=== PATIENT | female | born 1940 | race Caucasian/White ===

== ENCOUNTER 2022-09-23 08:35 | Observation (INO) ==
--- NOTE | 2022-09-13 11:14 | Anesthesiology Consultation ---
Date of Service September 13, 2022 Assessment & Plan (1) Encounter for pre-operative examination: COVID screening: Per assessment on 09/13: No known COVID-19 positive contacts or current COVID-19 related symptoms. Travel screen negative. Patient vaccinated. At surgeon discretion if preop Covid testing being done. Chart Review Chart Review: Acceptable Risk for Surgery and Patient NOT seen in Pre Admission Testing History Surgery Operation Date: 09/23/22 12:05 Proposed Procedures p Right Breast Mastectomy with Right Axillary [place] Lymph Node Biopsy - Paco Tucker MD Height/Weight Height: 5 ft Weight: 53.977 kg Allergies Allergy/AdvReac Type Severity Reaction Status Date / Time codeine Allergy Severe Hives Verified 09/13/22 11:27 Sulfa (Sulfonamide Allergy Unknown Unknown Verified 09/13/22 11:27 Antibiotics) morphine AdvReac Intermediate Diarrhea Verified 09/13/22 11:27 Medications Home Medications Medication Instructions Recorded Confirmed Last Taken biotin 5 mg tablet 5 mg PO QAM 09/13/22 09/13/22 Unknown jpjpzfe-uhifchhup-rces 333 mg-133 1 tab PO QAM 09/13/22 09/13/22 Unknown mg-5 mg tablet cholecalciferol (vitamin D3) 50 50 mcg PO QAM 09/13/22 09/13/22 Unknown mcg (2,000 unit) capsule (Vitamin D3) cyclobenzaprine 10 mg tablet 10 mg PO TID PRN Muscle Pain 09/13/22 09/13/22 Unknown gabapentin 100 mg capsule 100 mg PO HS PRN restless leg 09/13/22 09/13/22 Unknown syndrome ibuprofen 200 mg tablet 200 mg PO DAILY PRN Pain 09/13/22 09/13/22 Unknown loratadine 10 mg tablet 10 mg PO DAILY PRN allergies 09/13/22 09/13/22 Unknown multivit with 1 tab PO QAM 09/13/22 09/13/22 Unknown sjvtayjh-dokl-VG-lutein 8 mg iron-400 mcg-300 mcg tablet (Centrum Silver Women) vitamin B complex 1 tab PO QAM 09/13/22 09/13/22 Unknown Past Medical History Medical History Breast cancer, right Estrogen/progesterone receptor positive Cervical pain (neck) Flexeril PRN History of IBS Osteoarthritis Restless leg syndrome Past Family History Family History Other No family history of adverse response to anesthesia Past Surgical History Surgical History H/O thumb surgery removal of a thumb bone History of bilateral tubal ligation History of breast biopsy History of cataract surgery bilateral History of colonoscopy History of open reduction and internal fixation (ORIF) procedure left leg (age 15) with hardware Social History Smoking Status: Former smoker tobacco type: cigarettes Smoking End Date: Hx Alcohol Use: Yes Alcohol type: beer alcohol intake frequency: 0-2 drinks per day Hx Substance Use: No substance use type: does not use Testing Laboratory Results 07/26/22 WBC 7.41 H/H 13.3/41.9 PLATELETS 241 SODIUM 144 POTASSIUM 4.4 CHLORIDE 104 CO2 29 BUN 20 CREATININE 0.9 GLUCOSE 83 Electrocardiogram Date: 09/04/22 Findings: + NSR @ (78)
[~2022-09-23 08:35] MED LIST: LR 15ML/HR IV SCH; ceFAZolin 2000MG 2,000 MG/15 ML SYR IV SCH
[2022-09-23] MEDS ORDERED: LABETALOL HCL IV 5 MG/ML 20ML IV PRN (09:52)
[2022-09-23] MEDS ORDERED: MEPERIDINE HCL 25 MG/ML CARP/VIAL IV PRN (09:52)
[2022-09-23] MEDS ORDERED: ePHEDrine sulfate 50 MG/ML AMP IV PRN (09:52)
[2022-09-23] MEDS ORDERED: ATROPINE SULFATE 0.1 MG/ML 10ML SYR IV PRN (09:52)
[2022-09-23] MEDS ORDERED: PHENYLEPHRINE 100MCG/ML 5ML SYR IV PRN (09:52)
[2022-09-23] MEDS ORDERED: ONDANSETRON INJ 2 MG/ML 2 ML VIAL IV PRN ×2 (09:52→14:34)
--- NOTE | 2022-09-23 09:53 | History & Physical Bridge Note ---
Date of Service September 23, 2022 History & Physical Bridge Note I have examined the patient, reviewed the History & Physical and in the interval since the performance of the History & Physical I have noted the following changes of clinical significance: no changes noted
--- NOTE | 2022-09-23 09:57 | History & Physical Report ---
Date of Service September 23, 2022 Assessment & Plan (1) Breast cancer, right: Plan 82-year-old woman with right-sided breast cancer, infiltrating ductal carcinoma. I had long discussion with her concerning options. We will proceed with right breast mastectomy with sentinel lymph node biopsy at the hospital at the earliest convenience. All her questions were answered, and she is agreeable to proceed. Consent has been obtained. History of Present Illness Primary Care Provider: Davion Mead MD 82-year-old woman with right-sided breast cancer. Allergies Allergy/AdvReac Type Severity Reaction Status Date / Time codeine Allergy Severe Hives Verified 09/23/22 09:31 Sulfa (Sulfonamide Allergy Unknown Unknown Verified 09/23/22 09:31 Antibiotics) morphine AdvReac Intermediate Diarrhea Verified 09/23/22 09:31 Home Medications Medication Instructions Recorded Confirmed Type biotin 5 mg tablet 5 mg PO QAM 09/13/22 09/23/22 History tjupivj-iumkawmhi-pvjn 333 mg-133 1 tab PO DAILY 09/13/22 09/23/22 History mg-5 mg tablet cholecalciferol (vitamin D3) 50 50 mcg PO QAM 09/13/22 09/23/22 History mcg (2,000 unit) capsule (Vitamin D3) cyclobenzaprine 10 mg tablet 10 mg PO TID PRN Muscle Pain 09/13/22 09/23/22 His tory gabapentin 100 mg capsule 100 mg PO HS PRN restless leg 09/13/22 09/23/22 History syndrome ibuprofen 200 mg tablet 200 mg PO DAILY PRN Pain 09/13/22 09/23/22 History loratadine 10 mg tablet (Claritin) 10 mg PO DAILY PRN allergies 09/13/22 09/23/22 History multivit with 1 tab PO QAM 09/13/22 09/23/22 History ktangzqf-vuyb-GS-lutein 8 mg iron-400 mcg-300 mcg tablet (Centrum Silver Women) vitamin B complex 1 tab PO QAM 09/13/22 09/23/22 History Past Med/Surg History Medical History (Updated 09/23/22 @ 09:57 by Paco Tucker MD) Breast cancer, right Estrogen/progesterone receptor positive Cervical pain (neck) Flexeril PRN History of IBS Osteoarthritis Restless leg syndrome Surgical History H/O thumb surgery removal of a thumb bone History of bilateral tubal ligation History of breast biopsy History of cataract surgery bilateral History of colonoscopy History of open reduction and internal fixation (ORIF) procedure left leg (age 15) with hardware Family History Other No family history of adverse response to anesthesia Social History Smoking Status: Former smoker Smoking End Date: ; Second Hand Exposure: No; Tobacco Cessation Education Requested by Patient: No Hx Alcohol Use: Yes Alcohol type: beer Hx Substance Use: No Preferred Language: Faroese Communication Ability: Effective Radiology Practitioner Assistant Required: No Beliefs That Will Affect Care: None Current Living Situation: Spouse Other Information That Helps Us Care for You: No Feels Safe at Home: Yes Safety Concerns: Feels Safe At This Time Assistive Devices Comment: upper partial Review of Systems Review of Systems: All systems reviewed & are unremarkable except as noted in HPI & below Physical Exam Constitutional: WD/WN, vitals as above Eyes: PERRL, conjunctivae normal, anicteric sclerae Neck: trachea midline, no thyromegaly Respiratory: normal respiratory effort, lungs clear to auscultation Cardiovascular: RRR, no murmur, no edema Gastrointestinal (Abdomen): normal bowel sounds, soft, nontender, no hepatosplenomegaly Skin: no rashes, warm and dry Psychiatric: A+Ox3, euthymic affect Results & Data Results & Data ([facility]) Vital Signs (Past 12 Hours) Vital Signs Temp Pulse Resp BP Pulse Ox O2 Del Method 09/23/22 09:37 36.5 C 76 20 176/81 H 98 Room Air
[2022-09-23] MEDS ORDERED: BUPIVACAINE LIPOSOME 1.3% 266 MG/20 ML VIAL ONE (10:08)
[2022-09-23] MEDS ORDERED: BUPIVACAINE/EPINEPHRINE 0.25% 1:200,000 30 ML VIAL ONE (10:08)
[2022-09-23] MEDS ORDERED: fentaNYL citrate 100 MCG/2 ML VIAL ONE (10:13)
[2022-09-23] MEDS ORDERED: PROPOFOL IV EMULSION 10 MG/ML 20 ML VIAL IV ONE (10:24)
[2022-09-23] MEDS ORDERED: LIDOCAINE 2% MPF LOCAL 5 ML VIAL INFIL ONE (10:24)
[2022-09-23] MEDS ORDERED: DEXAMETHASONE SOD INJ 4 MG/ML VIAL ONE (10:24)
[2022-09-23] MEDS ORDERED: ONDANSETRON INJ 2 MG/ML 2 ML VIAL ONE (10:24)
[2022-09-23] MEDS ORDERED: ePHEDrine sulfate 50 MG/ML SYR ONE (10:36)
[2022-09-23] MEDS: fentaNYL citrate 100 MCG/2 ML VIAL IV PRN ×4 (12:55→13:15)
--- NOTE | 2022-09-23 12:57 | Post Operative Brief Note ---
Immediate Post Op Note v1 Date of Surgery September 23, 2022 Pre & Post Diagnosis Operation Date: 09/23/22 10:25 Pre-Op Diagnosis: Right Breast Infiltrating Ductal Carcinoma Post-Op Diagnosis: Right Breast Infiltrating Ductal Carcinoma I identified the patient and participated in the time-out.: Yes Procedure Operation Date: 09/23/22 10:25 Actual Procedures p Right Breast Mastectomy with Right Axillary [place] Lymph Node Biopsy(Right) - Paco Tucker MD Surgeon Paco Tucker MD Pump Stitcher None Estimated Blood Loss 20 Findings Consistent with Post-Op Diagnosis Drains Ziyad-Swain Drain (10 fr flat)
--- NOTE | 2022-09-23 13:03 | Operative Report ---
Post Operative Report Pre & Post Diagnosis Operation Date: 09/23/22 10:25 Pre-Op Diagnosis: Right Breast Infiltrating Ductal Carcinoma Post-Op Diagnosis: Right Breast Infiltrating Ductal Carcinoma I identified the patient and participated in the time-out.: Yes Procedure Operation Date: 09/23/22 10:25 Actual Procedures p Right Breast Mastectomy with Right Axillary [place] Lymph Node Biopsy(Right) - Paco Tucker MD Surgeon Paco Tucker MD Grocery Caddy None Estimated Blood Loss 20 Findings Consistent with Post-Op Diagnosis Specimens [place] lymph node #1: 900 count [place] lymph node #2: 140 count [place] lymph node #3: 500 count Right breast mastectomy, short stitch superior/long stitch lateral/inked margin deep Drains 10 [place] flat TUCKER Anesthesia Type General Complications No immediate complications Description of Procedure The patient taken to the operating room, placed supine on the operating table. A timeout was performed, perioperative antibiotics were administered, SCD boots were placed. After adequate anesthesia and analgesia was attained, the bilateral chest and right axilla was prepped and draped in normal sterile fashion. The neoprobe was used to identify the approximate location of the sentinel node. Elliptical incision was drawn on the right breast encompassing the nipple areolar complex extending into the right axilla. Exparel mixed with 1/4 percent Marcaine with epinephrine was injected into and around the right breast. The incision was made with a 15 blade scalpel and carried into the subcutaneous tissue. Flaps were raised between the subcutaneous tissue and the breast tissue underlying it. This began in the right axilla. Using the neoprobe, we dissected down to the clavipectoral fascia, and entered the axillary fat pad. 3 sentinel lymph nodes were identified with the neoprobe dissected free circumferentially and sent off the field for specimen. The background radiation count was less than 5% of the sentinel lymph node #1. Attention was then turned back to the breast. The flaps were raised with the electrocautery and a tension/counter tension technique. The borders superiorly were to the clavicle, inferiorly to the rectus sheath, medially to the sternal border, and laterally to the axilla. Large blood vessels were clamped and tied with 3-0 silk suture. Once this dissection was complete, the breast was removed with electrocautery, taking care to remove the pectoralis fascia with the specimen. It was oriented with sutures and ink and was sent off field for specimen. Additional breast tissue that was remaining on the flaps was removed and sent off with the specimen. Attention was turned hemostasis, and the right chest wall was copiously irrigated and suctioned free. A 10 [place] flat TUCKER drain was placed through separate stab incision and secured with a 3-0 nylon suture. The subcutaneous tissue was closed with interrupted 3-0 Vicryl sutures, and the skin was reapproximated with a running 4-0 Monocryl subcuticular stitch. Benzoin and Steri-Strips were applied. Dressings were applied. She tolerated the procedure without complication, was transferred in stable condition to the PACU. All instrument, needle, and sponge counts were correct at the end of the case. I attest to the content of the Intraoperative Record and any orders documented therein. Any exceptions are noted below.
--- NOTE | 2022-09-23 13:18 | Anesthesiology Progress Note ---
Date of Service September 23, 2022 Anesthesia Post Procedure Vital Signs Vital Signs: Temp Pulse Pulse Resp BP Pulse Ox O2 Del Method 09/23/22 13:05 74 12 166/77 H 100 Oxymask 09/23/22 12:55 79 16 165/79 H 100 Oxymask 09/23/22 12:48 36.0 C L 90 16 153/76 H 97 Oxymask 09/23/22 09:37 36.5 C 76 20 176/81 H 98 Room Air O2 Flow Rate 09/23/22 13:05 4 09/23/22 12:55 4 09/23/22 12:48 6 09/23/22 09:37 Pain Intensity Right Breast: Pain Intensity: 5 Transfer of Care Handoff Completed per policy Notes Mental Status: alert / awake / arousable and participated in evaluation Patient Amnestic to Procedure: Yes Nausea / Vomiting: adequately controlled Pain: adequately controlled Airway Patency, RR, SpO2: stable & adequate BP & HR: stable & adequate Hydration State: stable & adequate Anesthetic Complications: no major complications apparent and Pt Satisfied with anesthetic care
[2022-09-23] MEDS ORDERED: PROMETHAZINE HCL 12.5 MG in SODIUM CHLORIDE 0.9% 50 ML IV PRN (14:34)
[2022-09-23] MEDS ORDERED: GABAPENTIN 100 MG CAP PO PRN (14:34)
[2022-09-23] MEDS ORDERED: MoRPHine SULFATE 2 MG/ML CARP IV PRN (14:34)
[2022-09-23] MEDS ORDERED: ENOXAPARIN INJ 30 MG/0.3 ML SYR SQ SCH (14:34)
[2022-09-23] MEDS ORDERED: oxyCODONE/ACETAMINOPHEN 5mg/325mg TAB PO PRN (14:34)
[2022-09-23] MEDS ORDERED: ACETAMINOPHEN 500 MG TAB PO PRN (14:34)
[2022-09-23] MEDS: SODIUM CHLORIDE 0.9% 1000ML 1,000 ML IV SCH (14:43)
[2022-09-24 07:38] LABS: Creatinine Clr Calc Pharmacy 35.8 ml/min; Est GFR (Non-African American) 60.4 ml/min
[2022-09-24] MEDS: SODIUM CHLORIDE 0.9% 1000ML 1,000 ML IV SCH (10:31)
--- NOTE | 2022-09-24 15:23 | Surgery Progress Note ---
Date of Service September 24, 2022 Assessment & Plan (1) Breast cancer, right: Plan Postop day 1 status post right breast mastectomy with sentinel lymph node biopsy. Doing very well. Denies pain. Tolerating diet. Encouraged out of bed ambulation Discussed shoulder exercises for the right shoulder Advance diet as tolerated Will discharged home later today. Follow-up in 1 to 2 weeks in clinic Admission and Anticipated Discharge Date Admission Date: September 23, 2022 Subjective Postop day #1 status post right breast mastectomy with sentinel lymph node biop sy. She is doing quite well. She denies any pain or tenderness. She denies nausea or vomiting. She is tolerating diet. Physical Exam Physical Exam: A&O x3, NAD Chest: Mastectomy incision clean, dry, intact, Steri-Strips in place; dressing dry TUCKER drain with minimal serosanguineous output Results & Data ([facility]) Vital Signs (Past 12 Hours) Vital Signs Temp Pulse Pulse Resp BP BP Pulse Ox 09/24/22 11:22 36.8 C 73 16 148/78 H 99 09/24/22 11:14 36.7 C 80 65 16 124/67 136/79 98 09/24/22 07:33 36.7 C 65 16 136/79 98 O2 Del Method 09/24/22 11:22 Room Air 09/24/22 11:14 09/24/22 07:33 Room Air
--- NOTE | 2022-09-25 16:50 | Discharge Summary ---
Date of Service September 25, 2022 Admission HPI Per Admitting Provider 82-year-old woman with right-sided breast cancer, infiltrating ductal carcinoma, who presented to [facility] for right mastectomy with sentinel lymph node biopsy. Principal Diagnosis Right breast cancer, infiltrating ductal carcinoma Discharge Data Allergies Allergy/AdvReac Type Severity Reaction Status Date / Time codeine Allergy Severe Hives Verified 09/23/22 09:31 Sulfa (Sulfonamide Allergy Unknown Unknown Verified 09/23/22 09:31 Antibiotics) morphine AdvReac Intermediate Diarrhea Verified 09/23/22 09:31 Procedures Performed Operation Date: 09/23/22 10:25 Actual Procedures p Right Breast Mastectomy with Right Axillary [place] Lymph Node Biopsy(Right) - Paco Tucker MD Ordered Studies 09/23/22 05:00 US - OR guided needle placemen Routine Hospital Course (1) Breast cancer, right: Plan Patient was taken to operating room for right simple mastectomy and sentinel lymph node biopsy by Dr. Paco Tucker on 09/23/2022. Patient tolerated procedure well and was transferred to recovery then to medical/surgical floor for postoperative care. Postoperative day # 1 patient was doing well, vitals stable, pain was minimal and controlled, not requiring any narcotic pain medication, and tolerating diet. [place] drain with minimal serosanguineous output. Patient was discharged home in the afternoon on postoperative day # 1 in stable condition Total Time Total Time Spent Total Time Spent (In Minutes): 30 minutes Discharge Plan Discharge Items Patient Disposition: Home - Self-Care Reason For Visit: Right Breast Infiltrating Ductal Carcinoma Discharge Diagnosis: Right breast infiltrating ductal carcinoma Activity: Per Instructions section Non-emergency contact: Surgeon Call non-emergency contact if: you have any medication questions, your pain is worsening, your pain is concerning for you, you have a fever, your temperature is above 101, your wound has increased redness, your wound has increased drainage and your wound pain has increased Follow-up/Referrals: Davion Mead MD [Primary Care Provider] - Diet: Regular Addtl Attending Provider Instructions: RESTRICTIONS: No heavy lifting over 20 pounds for 4 weeks No strenuous activity until cleared by surgeon Encourage daily walking to prevent blood clots from forming in your legs MEDICATIONS: Resume previous medications unless instructed otherwise by your surgeon. * Tramadol as needed for moderate to severe pain * Tylenol 500-650 mg every 6 hours as needed for mild to moderate pain SPECIAL CARE INSTRUCTIONS: * Wear bra day and night until seen in office. * May shower in 24 hours. Let water run over steri strips and pat dry. * Leave steri strips on until seen in office. * Monitor drain output and color. Call office when drain output is less than 20 cc for 2 consecutive days. Drain will be remove in office. * Call the surgeon's office with any questions or concerns - (ex. temperature higher than 101 degrees F, excessive bleeding or pain). FOLLOW UP VISIT: If not already scheduled, please call the office for a follow-up appointment for next week at . Pending Studies at Discharge: Yes (pathology) Stand-Alone Forms: My [facility], Smoking Cessation Medications and DC Order Prescriptions: New tramadol 50 mg tablet 50 mg PO Q6H PRN (Reason: pain) Qty: 12 0RF Continued gabapentin 100 mg Capsule 100 mg PO HS PRN (Reason: restless leg syndrome) cyclobenzaprine 10 mg Tablet 10 mg PO TID PRN (Reason: Muscle Pain) vitamin B complex Tablet 1 tab PO QAM jpdhwwm-bcemfkigi-vvhj 333-133-5 mg Tablet 1 tab PO DAILY biotin 5 mg Tablet 5 mg PO QAM cholecalciferol (vitamin D3) [Vitamin D3] 50 mcg (2,000 unit) Capsule 50 mcg PO QAM Centrum Silver Women 8 mg iron-400 mcg-300 mcg Tablet 1 tab PO QAM ibuprofen 200 mg Tablet 200 mg PO DAILY PRN (Reason: Pain) loratadine [Claritin] 10 mg Tablet 10 mg PO DAILY PRN (Reason: allergies) Discharge Orders: Discharge Order (Routine); Ordered 09/24/22 Ordered By: Luisa Plummer Admission Data Admit Date/Time: 09/23/22 13:13 Attending Provider: Paco Tucker Admit Provider: Paco Tucker Primary Care Provider: Davion Mead Other Interventions: Discharge Summary Assessment (RN) Last Done: 09/24/22 11:14
== END 2022-09-24 13:37 | disposition home or self-care (01) ==
LOC: ASU 08:35 → 3N 08:35